=== PATIENT | male | born 1980 | race Caucasian/White ===

== ENCOUNTER 2022-11-14 07:23 | Outpatient (CLI) | payer OTHER, SELFPAY ==
[2022-11-14 15:08] LABS: Albumin* 4.4 g/dL (3.3-5.0); Chloride* 106 mmol/L (96-114)
[2022-11-14 15:09] LABS: Potassium* 4.5 mmol/L (3.6-5.1); Sodium* 139 mmol/L (135-149)
[2022-11-14 15:11] LABS: Alanine Aminotransferase* 32 U/L (4-50); Alkaline Phosphatase* 58 U/L (40-150); Aspartate Amino Transferase* 29 U/L (12-35); Bilirubin Total* 0.6 mg/dL (0.1-1.5); Blood Urea Nitrogen* 19 mg/dL (5-24); Carbon Dioxide* 26 mmol/L (20-32); Cholesterol* 246 mg/dL (90-199); Estimated Glomerular Filt Rate 97 ml/min; Glucose* 96 mg/dL (60-115); Total Protein* 7.4 g/dL (6.0-8.3)
[2022-11-14 15:12] LABS: Calcium* 9.4 mg/dL (8.4-10.6); HDL Cholesterol* 51 mg/dL (>=40); LDL Cholesterol Calculated 166 mg/dL (<100); Triglycerides* 144 mg/dL (40-149)
[2022-11-14 16:07] LABS: Hepatitis C Virus Antibody* Negative (Negative)
== END 2022-11-14 07:24 | disposition home or self-care (01) ==
PROVIDERS: Family Medicine; PCP Family Medicine; Visit Provider Family Medicine
DX: Z00.00 Encounter for general adult medical examination without abnormal findings (principal); F32.A Depression, unspecified; Z13.6 Encounter for screening for cardiovascular disorders; Z11.59 Encounter for screening for other viral diseases
CPT/HCPCS: 80053; 80061; 86803

== ENCOUNTER 2024-06-27 08:44 | Outpatient (CLI) | payer OTHER, SELFPAY ==
--- OUTSIDE RECORDS SUMMARY | 2024-06-27 08:49 | XMS_ITS | Continuity of Care Document ---
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 It does not include entries that were removed or entered in error. Problem Status Onset Date Problem Type Date of Resolution Comments Source OTHER SPEC EXAM Active Condition [facility] Vital Signs Combined list of inpatient and outpatient Vital Signs from [facility], ranging from 12 months to all on record, depending upon the facility. Vital Sign Value Date Comments Source Systolic Blood Pressure 122mm[Hg] 12/11/2001 15:53:00 Ambulatory Pharmacy Diastolic Blood Pressure 68mm[Hg] 12/11/2001 15:53:00 Ambulatory Pharmacy Encounters Combined list of: 1) Encounters from [facility] facilities going back up to thelast 18 months. 2) Encounters from the Department [facility] facilities going back up to 280 months. 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 Procedure Procedure Type Code Date Perfomer Comments Sourc e No data available for this section Ambulatory P harmacy Social History Combined list of available smoking, tobacco, and other social history from [facility] facilities. Social History Type Response Date Comment Sourc e Male 10/17/2023 Ambulatory Pha rmacy This section is an empty soc ial history section. [facility] Sexual Orientation Ambula tory Pharmacy Gender identity [facility] Assessment and Plan Combined list of future care activities from [facility] [facility] facilities (e.g., assessment and plan notes, appointments, orders, and referrals). Additional future care activities may be listed in the Plan of Care section. Result Assessment and Plan Date Source Assessment and Plan No data available for this section 06/27/2024 Ambulatory Pharmacy Functional Status Combined list of recent functional and cognitive assessments recorded at [facility] Functional [place] Measurement (FIM) Scale: 1 = Total Assistance (Subject = 0% +), 2 = Maximal Assistance (Subject = 25% +), 3 = Moderate Assistance (Subject = 50% +), 4 = Minimal Assistance (Subject = 75% +), 5 = Supervision, 6 = Modified [place] (Device), 7 = Complete [place] (Timely, Safely). Assessment Date/Time Source Assessment Type Assessment Skill Assessment Score Assessment Details No data available for this section
== END 2024-06-27 08:45 | disposition home or self-care (01) ==
PROVIDERS: PCP Physician Assistant Medical; Visit Provider Physician Assistant Medical
DX: F32.0 Major depressive disorder, single episode, mild (principal); E78.2 Mixed hyperlipidemia; R53.82 Chronic fatigue, unspecified
CPT/HCPCS: 80053; 80061; 82306; 82607; 82728; 84403; 84443

== ENCOUNTER 2025-01-15 07:30 | Outpatient (CLI) | payer OTHER, SELFPAY | END 2025-01-15 07:31 | disposition home or self-care (01) | LOC: NFLDREF 01-18 00:16 | PROVIDERS: PCP Physician Assistant Medical; Referring Provider Physician Assistant Medical; Visit Provider Physician Assistant Medical | DX: E29.1 Testicular hypofunction (principal) | CPT/HCPCS: 84403 ==

== ENCOUNTER 2025-01-22 09:36 | Outpatient (CLI) | payer OTHER, SELFPAY ==
--- NOTE | 2025-01-22 09:45 | CRLHL7_ITS ---
For Patients: As a result of the Century Cures Act, medical imaging exams and procedure reports are released immediately into your electronic medical record. You may view this report before your referring provider. If you have questions, please contact your health care provider. DIGITAL DIAGNOSTIC BILATERAL MAMMOGRAM USING TOMOSYNTHESIS AND COMPUTER-AIDED DETECTION LEFT BREAST ULTRASOUND CLINICAL HISTORY: LEFT breast pain/lump. COMPARISON: None. TECHNIQUE: Digital BILATERAL mammogram in four projections with computer-aided detection. Tomosynthesis was used in this interpretation. Real-time ultrasound imaging of LEFT breast with imaging documentation. BREAST COMPOSITION: There are scattered areas of fibroglandular density. FINDINGS: 3D CC/MLO BILATERAL mammogram images submitted. Mild fibroglandular tissue present on the LEFT. No suspicious mass or architectural distortion. Normal LEFT axillary lymph nodes. No suspicious calcifications. Targeted LEFT breast ultrasound performed in the area of concern at 2 o`clock 3 cm from the nipple. Normal subcutaneous tissues. No fluid collection or mass. IMPRESSION: No evidence of malignancy. Mild LEFT-sided gynecomastia. RECOMMENDATIONS: Clinical follow-up. A lay language report of this examination will be provided to the patient. BI-RADS Category 2: Benign Dictated by Osorio Macdonald MD @ 01/22/2025 11:01:30 AM jj/Dictated by: Osorio Macdonald MD @ 01/22/2025 11:01:00 AM (Electronically Signed)
--- NOTE | 2025-01-22 10:15 | CRLHL7_ITS ---
For Patients: As a result of the Cures Act, medical imaging exams and procedure reports are released immediately into your electronic medical record. You may view this report before your referring provider. If you have questions, please contact your health care provider. SEE DIGITAL DIAGNOSTIC BILATERAL MAMMOGRAM PERFORMED SAME DAY CRL:[email or web address] perkins/Dictated by: Osorio Macdonald MD @ 01/22/2025 10:58:00 AM (Electronically Signed)
== END 2025-01-22 09:37 | disposition home or self-care (01) ==
LOC: MAMMO 09:37
PROVIDERS: PCP Physician Assistant Medical; Visit Provider Physician Assistant Medical
DX: N64.4 Mastodynia (principal); N63.20 Unspecified lump in the left breast, unspecified quadrant
CPT/HCPCS: 76642; 77066; G0279

== ENCOUNTER 2025-05-21 07:34 | Outpatient (CLI) | payer OTHER, SELFPAY | END 2025-05-21 07:35 | disposition home or self-care (01) | LOC: NFLDREF 06-05 08:15 | PROVIDERS: PCP Physician Assistant Medical; Referring Provider Physician Assistant Medical; Visit Provider Physician Assistant Medical | DX: R79.89 Other specified abnormal findings of blood chemistry (principal) | CPT/HCPCS: 84403 ==